=== PATIENT | male | born 1940 | race Caucasian/White ===

== ENCOUNTER 2020-07-04 15:40 | Emergency (ER) | payer MEDICARE, OTHER ==
[~2020-07-04] VITALS: Ht 180.3 cm; Wt 105.0 kg
[~2020-07-04 15:40] MED LIST: AMIO200T61 PO; ASPI-1265 PO; ATOR20TA66 PO; FLO0.4C PO; LEVO112T5 PO; LISI-642 PO; LOP25T PO; MONT10TA32 PO; TICA90TA PO
[2020-07-04 21:33] VITALS: BP 145/87
== END 2020-07-04 21:34 | disposition home or self-care (01) ==
LOC: ER 15:40
DX: S80.02XA Contusion of left knee, initial encounter (principal); G89.18 Other acute postprocedural pain; M79.605 Pain in left leg; E78.00 Pure hypercholesterolemia, unspecified; I10 Essential (primary) hypertension; Z72.89 Other problems related to lifestyle; Z79.899 Other long term (current) drug therapy; Z79.82 Long term (current) use of aspirin; X58.XXXA Exposure to other specified factors, initial encounter; Y93.89 Activity, other specified; Y92.89 Other specified places as the place of occurrence of the external cause; Y99.8 Other external cause status
CPT/HCPCS: 93971; 99284